=== PATIENT | male | born 1990 | race Two or more races ===

== ENCOUNTER 2019-06-14 11:07 | Emergency (ER) | payer OTHER ==
[~2019-06-14] VITALS: Ht 170.2 cm; Wt 88.5 kg
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
[2019-06-14 11:27] VITALS: BP 118/76
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
[2019-06-14] MEDS ORDERED: ROBAXIN-750750 MG PO (14:19)
[2019-06-14] MEDS ORDERED: IBUPROFEN600 MG ORAL (14:19)
[2019-06-14] MEDS ORDERED: LIDODERM700 M1 TOPIC (14:19)
--- NOTE | 2019-06-14 14:21 | NUR ---
ED Nurse Note: PT LAYING PEACEFULLY IN BED IN NAD. AOX4. PRESCRIPTIONS AND DISCHARGE PAPERWORK EXPLAINED TO PT. PT VERBALIZES UNDERSTANDING AND ALL QUESTIONS ANSWERED. PRESCRIPTION AND DISCHARGE PAPERWORK GIVEN TO PT AND ID WRISTBAND REMOVED. PT WALKED OUT OF ER WITH STEADY GAIT AND ALL BELONGINGS.
[2019-06-14 14:22] VITALS: BP 122/74
== END 2019-06-14 14:23 | disposition home or self-care (01) ==
LOC: EMR 11:38
DX: S16.1XXA Strain of muscle, fascia and tendon at neck level, initial encounter (principal); V43.62XA Car passenger injured in collision with other type car in traffic accident, initial encounter; Y92.410 Unspecified street and highway as the place of occurrence of the external cause
CPT/HCPCS: 72125; 99284